=== PATIENT | female | born 1990 | race Caucasian/White ===

== ENCOUNTER → 2017-10-25 | Outpatient (CLI) | payer OTHER | END | disposition home or self-care (01) | LOC: MI 15:36 | PROC: BQ3HZZZ Magnetic Resonance Imaging (MRI) of Left Ankle (ICD-10-PCS; principal; 2017-10-25) | DX: M25.572 Pain in left ankle and joints of left foot (principal) ==

== ENCOUNTER 2019-08-14 06:43 | Emergency (ER) | payer OTHER ==
[~2019-08-14] VITALS: Ht 172.7 cm; Wt 115.7 kg
[2019-08-14 07:36] VITALS: Ht 172.7 cm; Wt 115.7 kg
[2019-08-14 08:26] VITALS: BP 152/98
== END 2019-08-14 08:26 | disposition home or self-care (01) ==
LOC: ED 06:43
DX: D18.01 Hemangioma of skin and subcutaneous tissue (principal); I10 Essential (primary) hypertension

== ENCOUNTER 2019-12-09 10:02 | Emergency (ER) | payer OTHER, SELFPAY ==
[~2019-12-09] VITALS: Ht 203.2 cm; Wt 113.4 kg
[2019-12-09 10:38] VITALS: Ht 203.2 cm; Wt 113.4 kg
[2019-12-09 12:45] VITALS: BP 115/72
== END 2019-12-09 12:45 | disposition home or self-care (01) ==
LOC: ED 10:02
DX: I10 Essential (primary) hypertension (principal); R51 Headache; M79.10 Myalgia, unspecified site; Z20.828 Contact with and (suspected) exposure to other viral communicable diseases
CPT/HCPCS: U0003-CS